=== PATIENT | female | born 1965 | race Caucasian/White ===

== ENCOUNTER 2017-05-04 06:11 | Day surgery (SDC) | payer BC ==
[2017-04-28 09:56] VITALS: BMI 28.9
[~2017-05-04 06:11] MED LIST: BUPIVACAINE HCL/PF 0.25% (2.5MG/ML) 10 ML VIAL IJ ONE; methylPREDNISolone ACET (DEPO) 40 MG/1 ML VIAL IM ONE
[2017-05-04] MEDS ORDERED: LIDOCAINE 1%/EPI 1:100000 (20 ML MULTI DOSE VIAL) ONE (07:06)
[2017-05-04] MEDS ORDERED: methylPREDNISolone ACET (DEPO) 40 MG/1 ML VIAL ONE (07:06)
[2017-05-04] MEDS ORDERED: THROMBIN (BOVINE) 5,000 UNIT VIAL TP ONE ×2 (07:06→09:32)
[2017-05-04] MEDS ORDERED: BUPIVACAINE HCL/PF 2.5 MG/ML - 30 ML VIAL IJ ONE (07:07)
[2017-05-04] MEDS ORDERED: GUM MASTIC/STORAX/MSAL/ALCOHOL 1 DRP DROPSBTL MC ONE (07:08)
[2017-05-04] MEDS ORDERED: oxyCODONE HCL 10 MG SUSTAINED ACTING TABLET PO ONE (07:32)
[2017-05-04] MEDS ORDERED: oxyCODONE HCL 10 MG SUSTAINED ACTING TABLET ONE (07:32)
[2017-05-04] MEDS ORDERED: MIDAZOLAM HCL 2 MG/2 ML SINGLE DOSE VIAL ONE (07:35)
[2017-05-04] MEDS ORDERED: SUCCINYLCHOLINE CHLORIDE 200 MG/10 ML VIAL ONE (07:35)
[2017-05-04] MEDS ORDERED: PROPOFOL 20 ML ONE (07:35)
--- NOTE | 2017-05-04 08:10 | HP ---
History & Physical Update - History History: No Change - Physical Physical: No Change - Assessment Assessment: No Change - Plan Plan: No Change
[2017-05-04] MEDS ORDERED: ceFAZolin SODIUM 1 GM VIAL ONE (08:49)
[2017-05-04] MEDS ORDERED: LIDOCAINE 1%/EPI 1:100000 (50 ML MULTI DOSE VIAL) INF ONE (09:05)
[2017-05-04] MEDS ORDERED: ONDANSETRON 4 MG/2 ML VIAL ONE (09:46)
[2017-05-04] MEDS ORDERED: BUPIVACAINE HCL/PF 0.25% (2.5MG/ML) 10 ML VIAL IJ ONE (10:08)
[2017-05-04] MEDS ORDERED: methylPREDNISolone ACET (DEPO) 40 MG/1 ML VIAL IM ONE (10:08)
[2017-05-04] MEDS ORDERED: LACTATED RINGERS SOLUTION 1,000 ML IV SCH (10:45)
--- NOTE | 2017-05-04 10:49 | OP ---
Operative Note - Note: Operative Date: 05/04/17 Pre-Operative Diagnosis: spinal stenosis L3-L5 Operation: laminectomy of L3-L4, L4-L5 Surgeon: Rasheed Banuelos [employer] Specialist: Samra Patton Anesthesiologist/ARMATURE AND ROTOR WINDER: Sharmin Salinas Anesthesia: Spinal Estimated Blood Loss (mls): 20 Fluid Volume Replaced (mls): 800 Operative Report Dictated: Yes
--- NOTE | 2017-05-04 10:50 | SURG ---
Surgery Pheresis Nurse Note Pheresis Nurse: Samra Patton PA-C Date of Service: 05/04/17 Diagnosis: spinal stenosis of L3-L4, L4-L5 Procedure: laminectomy of L3-L4, L4-L5 I was present for the entirety of the operative procedure. For further detail, please refer to operative report.
[2017-05-04] MEDS ORDERED: traMADol HCL 50 MG TABLET PO PRN (10:55)
[2017-05-04] MEDS ORDERED: ONDANSETRON 4 MG/2 ML VIAL IVPUSH PRN (11:10)
[2017-05-04] MEDS ORDERED: oxyCODONE HCL 5 MG TABLET PO PRN (11:11)
--- NOTE | 2017-05-04 11:50 | OP ---
DATE OF OPERATION: 05/04/2017 PREOPERATIVE DIAGNOSIS: Spinal stenosis L3-4, L4-5. POSTOPERATIVE DIAGNOSIS: Spinal stenosis L3-4, L4-5. PROCEDURE PERFORMED: Laminectomy L3-4, L4-5. SURGEON: Rasheed Banuleos MD DIRECTOR OF CASINO MARKETING: MARTELL Watkins ESTIMATED BLOOD LOSS: 50 mL. IV FLUIDS: Per anesthesia. ANESTHESIA: Spinal. COMPLICATIONS: None. DISPOSITION: The patient brought to the PACU in stable condition. INDICATIONS FOR SURGERY: The patient is a 51-year-old female who has been suffering from pain from her back down her legs. X-rays and MRI were completed which showed that she had spinal stenosis from L3 down to L5. She had gone through an exhaustive course of treatment for this including medications, physical therapy, as well as injections. Unfortunately, her pain continued to persist despite all this. At this point risks, benefits and alternatives were discussed and the patient consented to surgery. OPERATIVE NOTE: The patient was brought to the operating room by anesthesia. After appropriate patient identification was performed, spinal anesthesia was given. She was placed prone onto the Tavon frame with all areas well-padded at this time. Two needles were placed into the back to maira out the L3 and L5 segments and x-ray was taken to confirm this was the correct level. The needle was removed and 10 mL of lidocaine with epinephrine were injected in her back at this time. The back was prepped and draped in a sterile manner. At this point a timeout was completed. An incision was made from the top of L3 down to the bottom of l5. Dissection was carried down to the fascia. The fascia was split open at this time. Appropriate retractors were placed. A spinal needle was placed onto the L4-5 lamina. An x-ray was taken to confirm placement. The needle was removed and the microscope was brought in. At this point the ligament at L3-4 and L4-5 was removed. The spinous process of L4 was removed. A bur was used to complete removal of the lamina. The flavum was identified and it was removed. A complete decompression was performed such that by the end of the procedure the L4 and L5 nerve root appeared to be well decompressed. All bleeding was well-controlled at this time. Steroids were placed over the nerve root and Floseal was placed over that. The fascia was closed via No. 1 Vicryl suture, subsequently tissues closed with 2-0 Vicryl and the skin closed with 3-0 Monocryl suture. Dermabond was applied. Steri-Strips were applied and a sterile dressing was applied. The patient placed supine on OR bed and brought to the PACU in stable condition. RASHEED BANUELOS M.D. MEAGHAN/[id number]
[2017-05-04 12:35] VITALS: TEMP 97.8
[2017-05-04 13:22] VITALS: BP 143/82; PULSE 94
== END 2017-05-04 13:10 | disposition home or self-care (01) ==
LOC: FASU 06:11
PROVIDERS: ATTEND Orthopaedic Surgery Orthopaedic Surgery of the Spine
PROC: 01NB0ZZ Release Lumbar Nerve, Open Approach (ICD-10-PCS; principal; 2017-05-04 08:15)
DX: M48.06 Spinal stenosis, lumbar region (principal); M48.07 Spinal stenosis, lumbosacral region
CPT/HCPCS: 72100-TC; 76000-TC; 94760